=== PATIENT | female | born 1960 | race Caucasian/White ===

== ENCOUNTER 2019-03-18 11:58 | Outpatient (CLI) | payer OTHER ==
[~2019-03-18] VITALS: Ht 160.1 cm; Wt 85.6 kg
[~2019-03-18 11:58] MED LIST: NORCO 325 MG-51 TAB PO
[2019-03-18] MEDS ORDERED: MIRAPEX0.5 MG PO (12:39)
[2019-03-18] MEDS ORDERED: HYGROTON 2525 MG/TAB PO (12:40)
[2019-03-18] MEDS ORDERED: DESYREL 50MG50 MG PO (12:41)
[2019-03-18] MEDS ORDERED: ZOLOFT 100MG100 MG PO (12:41)
[2019-03-18] MEDS ORDERED: SYNTHROID0.125 MG/T PO (12:41)
[2019-03-18] MEDS ORDERED: CHANTIX 1MG1 MG PO (12:42)
[2019-03-18] MEDS ORDERED: MICARDIS20 MG PO (12:42)
[2019-03-18] MEDS ORDERED: CELEBREX 1100 MG/CAP PO (12:42)
[2019-03-18] MEDS ORDERED: VALIUM 5MG T5 MG/TAB PO (12:43)
[2019-03-18 12:45] VITALS: BP 126/67; PULSE 76; TEMP 98.1
[2019-03-18] MEDS ORDERED: CLEOCIN HCL300 MG PO (13:06)
[2019-03-18 13:20] VITALS: BP 111/57; PULSE 85
--- NOTE | 2019-03-18 13:36 | NUR ---
Discharge instructions given to pt.pt verbalizes understanding.Pt escorted out by this nurse.
== END 2019-03-18 13:37 | disposition home or self-care (01) ==
LOC: COL.CAR 11:58
DX: I47.2 Ventricular tachycardia (principal); I10 Essential (primary) hypertension; Z87.891 Personal history of nicotine dependence; Z88.0 Allergy status to penicillin; Z88.2 Allergy status to sulfonamides

== ENCOUNTER 2019-05-07 06:55 | Day surgery (SDC) | payer OTHER ==
[2019-05-07] VITALS (14 sets, daily range): BP systolic 109–191; BP diastolic 58–96; PULSE 60–76; TEMP 98
[~2019-05-07] VITALS: Ht 160.2 cm; Wt 91.4 kg
[~2019-05-07 06:55] MED LIST changes: +CELEBREX 1100 MG/CAP PO; +CHANTIX 1MG1 MG PO; +CLEOCIN HCL300 MG PO; +DESYREL 50MG50 MG PO; +HYGROTON 2525 MG/TAB PO; +MICARDIS20 MG PO; +MIRAPEX0.5 MG PO; +SYNTHROID0.137 MG PO; +VALIUM 5MG T5 MG/TAB PO; +ZOLOFT 100MG100 MG PO
[2019-05-07 07:39] LABS: HEMOGLOBIN 13.4 g/dl (12.5-16.0); MEAN CELL VOLUME 96 fl (80.0-100.0); MEAN CORPUSCULAR HEMOGLOBIN 32 pg (27.0-31.0); MEAN CORPUSCULAR HGB CONC 34 g/dl (33.0-37.0); MEAN PLATELET VOLUME 10.9 fl (7.4-10.4); PLATELET COUNT 174 K/mm3 (130-400); RED BLOOD COUNT 4.18 M/mm3 (4.10-5.30); REDCELL DISTRIBUTION WIDTH-CV 13.2 % (11.5-14.5)
[2019-05-07 07:48] LABS: CALCIUM 9.5 mg/dL (8.4-10.2); CREATININE, serum 0.93 (0.52-1.25); INR 0.9 (0.8-3.0); POTASSIUM 4.2 mmol/L (3.4-5.0); PROTHROMBIN TIME 10.7 SECONDS (9.7-12.8)
[2019-05-07] MEDS ORDERED: CRESTOR 10MG10 MG PO (08:16)
--- NOTE | 2019-05-07 09:23 | NUR ---
SEE MERGE DOCUMENTATION FOR MEDICATION ADMINISTRATION TIMES AND INTRA/POST PROCEDURE SEDATION ASSESSMENTS.
--- NOTE | 2019-05-07 10:42 | NUR ---
Pt transferred to express unit at this time. Manual pressure previously held in supervisor laboratory to both arterial and venous access sites in right groin. Pt A&Ox3, conversing with staff. VS monitors connected, VS's WNL. Bedside handoff with VERONICA Orosco at this time. Groin site assessed. Dressing dry and intact. No signs of bleeding or oozing noted. Pt c/o pain distal to puncture sites. No s/sx of hematoma noted; surrounding tissue soft and no bruising noted at this time. DP pulse palpated +1 at this time. Education provided to pt regarding flat time and groin precautions.
--- NOTE | 2019-05-07 11:04 | NUR ---
Araseli,one tab per pt complaint of pain in right groin/leg area.Right groin is soft,no bleeding observed at site.Reported to Dr Rodriguez.Will continue to monitor.
[2019-05-07] MEDS ORDERED: ELIQUIS 5MG PO (15:37)
--- NOTE | 2019-05-07 17:40 | NUR ---
Discharge instructions given to pt.Pt verbalizews understanding.INT removed,catheter tip intact.pt escorted out vi wheelchair by this nurse.
== END 2019-05-07 17:40 | disposition home or self-care (01) ==
LOC: COL.CAR 06:55
PROVIDERS: Internal Medicine Cardiovascular Disease
DX: I25.10 Atherosclerotic heart disease of native coronary artery without angina pectoris (principal); I10 Essential (primary) hypertension; E03.9 Hypothyroidism, unspecified; Z88.0 Allergy status to penicillin; Z88.2 Allergy status to sulfonamides; Z88.1 Allergy status to other antibiotic agents; Z87.891 Personal history of nicotine dependence
CPT/HCPCS: J1644; J2250; J3010; Q9967

== ENCOUNTER → 2020-07-08 | Outpatient (CLI) | payer OTHER ==
[~2020-07-08] MED LIST changes: +CRESTOR 10MG10 MG PO; +ELIQUIS 5MG PO
== END ==
LOC: COL.RAD 13:47
DX: R42 Dizziness and giddiness (principal); R51.9 Headache, unspecified
CPT/HCPCS: A9585

== ENCOUNTER → 2021-05-06 | Outpatient (CLI) | payer MEDICARE, OTHER | LOC: COL.PUL 12:46 | DX: R06.02 Shortness of breath (principal) | CPT/HCPCS: J7674 ==